=== PATIENT | male | born 1955 | race Caucasian/White ===

== ENCOUNTER 2017-07-17 00:01 | Outpatient (RCR) | payer MEDICARE, MEDICAID, SELFPAY ==
[2015-10-30 10:24] VITALS: BP 109/68
[~2017-07-17 00:01] MED LIST: BENZ1TAB10 PO; CITA20TA9 PO; DIVA250T25 PO; GEMF600T3 PO; MIRT15 PO; RISP2 PO; TEMA15CA PO; TOPI25 PO
[2017-08-11 07:17] LABS: HEPATITIS C AB SCREEN 0.1 s/co ratio (0.0-0.9)
== END 2017-08-15 | disposition home or self-care (01) ==
LOC: IOPBV 00:01
PROVIDERS: ATTEND Psychiatry & Neurology Psychiatry
DX: F25.9 Schizoaffective disorder, unspecified (principal); F22 Delusional disorders; K59.03 Drug induced constipation; T50.995A Adverse effect of other drugs, medicaments and biological substances, initial encounter; Y92.89 Other specified places as the place of occurrence of the external cause
CPT/HCPCS: 86705; 86706; 86708; 86709; 86803; 87340; 90853